=== PATIENT | female | born 1945 | race Caucasian/White ===

== ENCOUNTER 2016-12-07 09:44 | Day surgery (SDC) | payer OTHER ==
[2016-12-01 16:28] VITALS: BMI 31.8
[2016-12-07] MEDS ORDERED: PROPOFOL 20 ML ONE ×2 (09:55)
[2016-12-07 09:57] VITALS: TEMP 98.6
[2016-12-07 11:28] VITALS: PULSE 83
[2016-12-07 12:05] VITALS: BP 121/72
--- NOTE | 2016-12-08 15:57 | PATH ---
Surgical Pathology Report Patient Name: AUSTEN ZHANG [facility]. Rec. #: [id number] /Age/Gender: 1945 (Age: 71) / F Account: [id number] Location: [facility]-ENDOSCOPY Taken: 12/07/2016 Received: 12/07/2016 Reported: 12/08/2016 Physicians: Costa Louis M.D. Specimen(s) Received A: BX DUODENUM B: BX ANTRUM C: GASTRIC POLYP D: BX SIGMOID Clinical History GERD, rule out colon cancer Rule out celiac disease, gastritis, gastric polyp Final Diagnosis A. DUODENUM, BIOPSY: DUODENAL MUCOSA WITH NO PATHOLOGIC FINDINGS. Note: Features suggestive of celiac disease are not identified in this biopsy. B. ANTRUM, BIOPSY: MILD CHRONIC GASTRITIS. IMMUNOSTAIN IS NEGATIVE FOR H. PYLORI ORGANISMS. C. GASTRIC POLYP, BIOPSY: GASTRIC FUNDIC GLAND POLYP. IMMUNOSTAINS NEGATIVE FOR H. PYLORI ORGANISMS. D. SIGMOID, BIOPSY: TUBULAR ADENOMA. Electronically Signed Yanci Hughes M.D. Gross Description A. Received in formalin, labeled "duodenum" are 3 diaz, irregular portions of soft tissue ranging from 0.1-0.4 cm. in greatest dimension. The specimens are submitted in toto in one cassette. B. Received in formalin, labeled "antrum" are 2 diaz, irregular portions of soft tissue averaging 0.3 cm. in greatest dimension. The specimens are submitted in toto in one cassette. C. Received in formalin, labeled "gastric polyp" are 2 diaz, irregular portions of soft tissue measuring 0.3 and 0.4 cm. in greatest dimension. The specimens are submitted in toto in one cassette. D. Received in formalin, labeled "sigmoid" is a diaz, irregular portion of soft tissue measuring 0.2 cm. in greatest dimension. The specimen is submitted in toto in one cassette. 12/07/201612/07/2016
== END 2016-12-07 12:06 | disposition home or self-care (01) ==
LOC: FASU-ENDO 09:44
PROVIDERS: ATTEND Internal Medicine Gastroenterology
PROC: 0DB68ZX Excision of Stomach, Via Natural or Artificial Opening Endoscopic, Diagnostic (ICD-10-PCS; 2016-12-07)
PROC: 0DBN8ZX Excision of Sigmoid Colon, Via Natural or Artificial Opening Endoscopic, Diagnostic (ICD-10-PCS; principal; 2016-12-07 10:38)
PROC: 0DB98ZX Excision of Duodenum, Via Natural or Artificial Opening Endoscopic, Diagnostic (ICD-10-PCS; 2016-12-07 10:38)
DX: Z12.11 Encounter for screening for malignant neoplasm of colon (principal); D12.5 Benign neoplasm of sigmoid colon; K57.30 Diverticulosis of large intestine without perforation or abscess without bleeding; K29.50 Unspecified chronic gastritis without bleeding; K31.7 Polyp of stomach and duodenum
CPT/HCPCS: 88305-TC; 88342-TC

== ENCOUNTER 2022-11-04 07:50 | Day surgery (SDC) | payer OTHER ==
[2022-10-29 14:39] VITALS: BMI 31.6
[2022-11-04] MEDS ORDERED: LIDOCAINE HCL/PF 2% SDV 5ML VIAL ONE (08:04)
[2022-11-04] MEDS ORDERED: PROPOFOL 120 ML ONE (08:04)
[2022-11-04] MEDS ORDERED: PROPOFOL 100 ML ONE (08:36)
[2022-11-04 08:51] VITALS: RESP 16; TEMP 98
[2022-11-04 09:12] VITALS: BP 128/68; PULSE 88
== END 2022-11-04 09:43 | disposition home or self-care (01) ==
LOC: FASU-ENDO 07:50
PROVIDERS: ATTEND Internal Medicine Gastroenterology
PROC: 0DJD8ZZ Inspection of Lower Intestinal Tract, Via Natural or Artificial Opening Endoscopic (ICD-10-PCS; principal; 2022-11-04 08:31)
DX: Z12.11 Encounter for screening for malignant neoplasm of colon (principal); K57.30 Diverticulosis of large intestine without perforation or abscess without bleeding; Z86.010 Personal history of colon polyps